=== PATIENT | male | born 2000 | race Caucasian/White ===

== ENCOUNTER → 2024-07-08 | Outpatient (CLI) | payer OTHER ==
[~2024-07-08] MED LIST: PROHANCE 279.3MG/ML 15ML VIAL ONE; PROHANCE 279.3MG/ML 5ML VIAL ONE
== END ==
LOC: M PLAIMG 07:07
PROVIDERS: ATTEND Physician Assistant
DX: M67.431 Ganglion, right wrist (principal)

== ENCOUNTER → 2024-08-26 | Outpatient (CLI) | payer OTHER ==
[~2024-08-26] MED LIST changes: +ISOVUE-300 61% 100ML VIAL As Ordered ONE; +LIDOCAINE 1% MDV 20ML VIAL As Ordered ONE; -PROHANCE 279.3MG/ML 15ML VIAL ONE; +PROHANCE 279.3MG/ML 5ML VIAL As Ordered ONE; -PROHANCE 279.3MG/ML 5ML VIAL ONE
== END ==
LOC: M RAD 12:04
PROVIDERS: ATTEND Orthopaedic Surgery
DX: M25.312 Other instability, left shoulder (principal); M75.02 Adhesive capsulitis of left shoulder
CPT/HCPCS: 23350; 73223; 77002; A9576; Q9967